=== PATIENT | female | born 1965 | race Caucasian/White ===

== ENCOUNTER → 2019-10-01 10:26 | Outpatient (BNVA) | payer OTHER, SELFPAY | PROVIDERS: Family Provider Family Medicine; PCP Family Medicine; Visit Provider Nurse Practitioner Family | DX: R22.9 Localized swelling, mass and lump, unspecified (principal); R53.82 Chronic fatigue, unspecified | CPT/HCPCS: 84439; 84443; 85007; 85027 ==

== ENCOUNTER 2019-10-02 13:24 | Outpatient (CLI) | payer OTHER, SELFPAY ==
--- NOTE | 2019-10-02 13:34 | XRR_ITS ---
PROCEDURE INFORMATION: Exam: XR Right Clavicle, Complete Exam date and time: 10/02/2019 1:35 PM Age: 54 years old Clinical indication: Pain; Other: Lump on medial clavicle; Other: RT clavicle; Additional info: Lump clavicle TECHNIQUE: Imaging protocol: XR Right clavicle complete. Any number of views. COMPARISON: No relevant prior studies available. FINDINGS: Bones/joints: Negative for acute bony abnormality. Soft tissues: There is a circumscribed density near the right humeral head measuring 9 mm x 9 mm. This finding may represent calcific tendinitis XR/[place] [id number] IMPRESSION: No acute findings. Calcific tendinitis
== END 2019-10-02 13:25 | disposition home or self-care (01) ==
PROVIDERS: Family Provider Family Medicine; PCP Family Medicine; Visit Provider Nurse Practitioner Family
DX: M65.28 Calcific tendinitis, other site (principal); R22.31 Localized swelling, mass and lump, right upper limb
CPT/HCPCS: 73000

== ENCOUNTER → 2019-10-23 07:58 | Outpatient (BNVA) | payer OTHER, SELFPAY | PROVIDERS: Family Provider Family Medicine; PCP Nurse Practitioner Family; Visit Provider Nurse Practitioner Family | DX: Z01.89 Encounter for other specified special examinations (principal) ==

== ENCOUNTER 2019-11-11 10:24 | Day surgery (SDC) | payer OTHER, SELFPAY ==
[2019-11-08 11:23] VITALS: BMI 42.5
--- NOTE | 2019-11-11 10:33 | P.ANESASSM_ITS ---
Pre-Anesthetic Assessment Pre-Anesthetic Assessment: Height/Weight: Height 1.42 m Weight 86.183 kg Preop Diagnosis: screening Proposed Procedure: Operation Date: 11/11/19 12:00 Proposed Procedures p Colonoscopy(Not Applicable) - Girish Dodge MD Familial anesthetic complications: NOne Was Beta Liliana taken within 24 hours: N/A Last intake: NPO > 8 hrs Social: Social History: No alcohol and No tobacco Exam: Pre-Anes Outpt Exam: alert, oriented x 3, clear to auscultation bilaterally and regular rate & rhythm Airway: Cervical ROM: WNL MP: 2 Dentition: Full Pulmonary: Pulmonary: None reported CV/HEM: CV/HEM: None reported : : None reported Hepatic: Hepatic: None reported GI: GI: None reported Metabolic: Metabolic: None reported Musc/skel: Musc/skel: OA/DJD Neuropsych: Neuropsych: None reported Anesthetic Plan: ASA status: 1 Anesthesia: MAC Risk of > 500 ml blood loss (7ml/kg in children): No PFSH Anesthesia PFSH: Social History Smoking and tobacco status: never smoked Second hand smoke exposure: No Alcohol intake: never Adopted: No Caregiver/support person: Yes Lives independently: Yes Household members: spouse Housing: House Marital status: service: No Current occupational status: retired Current occupational exposures/hazards: No Pets and animals: No History of recent travel: No Sexually active: Yes Current gender identity: Female Yancy/Sikhism: Confucianist Special yancy needs: No Agree to transfusion: No Financial difficulty paying for basics: Decline to Answer Data Anesthesia Cardiac Studies: No Data to Display
[2019-11-11 11:14] VITALS: BP 123/73; PULSE 85; RESP 18; TEMP 36.9; O2SAT 100
[2019-11-11] MEDS: sodium chloride 0.9% 1,000 ML 30 ML (11:18)
[2019-11-11] MEDS: sodium chloride 0.9% 1,000 ML 30 ML IV (11:18)
--- NOTE | 2019-11-11 11:41 | W.PM.OPSUD ---
Surgery/Procedure H&P Update DATE OF PROCEDURE: November 11, 2019 DATE H&P PERFORMED: 10/31/19 H&P UPDATE INFORMATION: I have reviewed H&P completed within last 30 days, I have examined patient prior to procedure and No changes to prior documentation PREOP DIAGNOSIS: Screening colonoscopy PRIMARY INDICATION FOR PROCEDURE: The same PLANNED PROCEDURE: Operation Date: 11/11/19 12:00 Proposed Procedures p Colonoscopy(Not Applicable) - Girish Dodge MD
[2019-11-11 12:20] VITALS: BP 125/71; PULSE 74; RESP 16; TEMP 36.4; O2SAT 99
[2019-11-11 12:30] VITALS: BP 117/85; PULSE 72; RESP 16; O2SAT 100
--- NOTE | 2019-11-11 12:31 | ANE.PACU2 ---
 Inpatient post-anesthesia follow up: Airway intact: Yes Vital signs: Temperature 97.6 F Pulse Rate 74 Respiratory Rate 16 Blood Pressure 125/71 Pulse Oximetry 99 Oxygen Delivery Me thod Nasal Cannula Oxygen Flow Rate Fraction of Inspir ed Oxygen Hydration adequate: Yes Nausea and vomiting: No Mental status: Baseline
[2019-11-11 12:42] VITALS: BP 134/83; PULSE 69; RESP 16; O2SAT 100
== END 2019-11-11 13:02 | disposition home or self-care (01) ==
PROVIDERS: Family Provider Family Medicine; PCP Nurse Practitioner Family; Visit Provider Surgery
PROC: 0DJD8ZZ Inspection of Lower Intestinal Tract, Via Natural or Artificial Opening Endoscopic (ICD-10-PCS; CPT 45378; principal; 2019-11-11 12:00)
DX: Z12.11 Encounter for screening for malignant neoplasm of colon (principal); D12.4 Benign neoplasm of descending colon; K57.30 Diverticulosis of large intestine without perforation or abscess without bleeding; M19.90 Unspecified osteoarthritis, unspecified site
CPT/HCPCS: 12345; 45385; J7030

== ENCOUNTER 2020-01-27 16:16 | Outpatient (CLI) | payer OTHER, SELFPAY ==
--- NOTE | 2020-01-27 16:25 | XR_ITS ---
WS: [id number] Left shoulder, 3 views, 01/27/2020 Clinical Data: shoulder strain Comparison: None. Findings: No fractures or dislocations are seen. The AC joint is normal. The adjacent left clavicle, left scapu la and ribs are normal. There are calcifications adjacent to the greater tuberosity. These may repres ent calcifications of bursitis or tendinitis. XR/XR shoulder LT min 2V* [id number] Impression: Calcific bursitis or tendinitis of the left shoulder.
== END 2020-01-27 16:17 | disposition home or self-care (01) ==
LOC: RAD CLINIC 16:20
PROVIDERS: PCP Nurse Practitioner Family; Visit Provider Nurse Practitioner Family
DX: M25.512 Pain in left shoulder (principal)
CPT/HCPCS: 73030

== ENCOUNTER → 2020-03-10 13:57 | Outpatient (BNVA) | payer OTHER, SELFPAY | PROVIDERS: PCP Nurse Practitioner Family; Visit Provider Surgery | DX: L72.3 Sebaceous cyst (principal) | CPT/HCPCS: 88304 ==

== ENCOUNTER → 2020-07-10 10:46 | Outpatient (BNVA) | payer OTHER, SELFPAY | PROVIDERS: PCP Nurse Practitioner Family; Visit Provider Nurse Practitioner Family | DX: J02.9 Acute pharyngitis, unspecified (principal); B34.9 Viral infection, unspecified; Z20.828 Contact with and (suspected) exposure to other viral communicable diseases | CPT/HCPCS: 87071; 87635; 87880 ==

== ENCOUNTER → 2020-07-15 16:15 | Outpatient (BNVA) | payer OTHER, SELFPAY | PROVIDERS: PCP Nurse Practitioner Family; Visit Provider Nurse Practitioner Family | DX: J02.9 Acute pharyngitis, unspecified (principal) | CPT/HCPCS: 87071; 87880 ==

== ENCOUNTER 2020-08-14 12:51 | Outpatient (CLI) | payer OTHER, SELFPAY ==
--- NOTE | 2020-08-14 12:55 | XR_ITS ---
WS: [id number] PA and lateral chest, 08/14/2020 Clinical Data: J06.9 - Acute upper respiratory infection, unspecified Comparison: None. Findings: No nodules, masses or effusions are seen. There is a patchy right lower lobe opacity consis tent with acute pneumonia. The remainder of the lungs is clear. The heart is normal. No pneumothorax is present. XR/XR chest 2V* [id number] Impression: Patchy opacity in the lateral aspect of right lower lobe consistent with acute pneumonia.
[2020-08-14 14:06] LABS: Basophils % 0.2 %; Eosinophils # 0.1 10^3/uL (0.0-0.8); Hematocrit 36.8 % (37.0-47.0); Hemoglobin 11.9 g/dL (11.5-15.3); Lymphocytes # 1.6 10^3/uL (0.8-4.8); Lymphocytes % 33.8 %; Mean Corpuscular HGB Conc 32.3 g/dL (30.0-36.0); Mean Corpuscular Hemoglobin 28.3 pg (28.0-34.0); Mean Corpuscular Volume 87.6 fL (81-99); Mean Platelet Volume 10.2 fL (7.4-10.4); Monocytes # 0.5 10^3/uL (0.2-0.9); Monocytes % 10.2 %; Neutrophils # 2.42 10^3/uL (1.8-7.7); Neutrophils % 52.6 %; Nucleated Red Blood Cells % 0 %; Platelet Count 264 10^3/cmm (130-400); Red Cell Distribution Width 12.5 % (12.1-15.1); White Blood Count 4.6 10^3/uL (4.0-10.0)
[2020-08-14 14:20] LABS: Alanine Aminotransferase 18 U/L (0-33); Albumin Level 3.7 g/dL (3.5-5.2); Alkaline Phosphatase 70 IU/L (35-105); Anion Gap 14.5 (5-19); Aspartate Amino Transferase 11 U/L (0-32); Blood Urea Nitrogen 13 mg/dL (6-20); Calcium 8.9 mg/dL (8.5-10.5); Carbon Dioxide 26 mmol/L (22-29); Chloride 102 mmol/L (98-107); Globulin 3.5 g/dL (1.3-4.6); Glucose 91 mg/dL (65-115); Osmolality Calculated 288 mOsm/kg (285-295); Potassium 3.5 mmol/L (3.5-5.1); Sodium 139 mmol/L (136-145); Total Bilirubin 0.3 mg/dL (0.15-1.2); Total Protein 7.2 g/dL (6.6-8.7)
[2020-08-14 14:33] LABS: Monoscreen Negative (Negative)
[2020-08-14 14:35] LABS: Slide Review Slide Review Perform
[2020-08-14 14:58] LABS: Erythrocyte Sedimentation Rate 84 mm/hr (0-15)
== END 2020-08-14 12:52 | disposition home or self-care (01) ==
PROVIDERS: PCP Nurse Practitioner Family; Visit Provider Registered Nurse
DX: J06.9 Acute upper respiratory infection, unspecified (principal)
CPT/HCPCS: 36415; 71046; 80053; 85025; 85651; 86141; 86308

== ENCOUNTER → 2020-08-18 13:58 | Outpatient (BNVA) | payer OTHER, SELFPAY | PROVIDERS: PCP Nurse Practitioner Family; Visit Provider Registered Nurse | DX: J06.9 Acute upper respiratory infection, unspecified (principal); J12.9 Viral pneumonia, unspecified | CPT/HCPCS: 87635 ==